=== PATIENT | male | born 1965 | race Caucasian/White ===

== ENCOUNTER 2024-03-16 20:30 | Outpatient (OUT) | payer OTHER, SELFPAY | END 2024-03-16 20:31 | disposition home or self-care (01) | LOC: SLEEP 20:43 | PROVIDERS: PCP Family Medicine; Visit Provider Family Medicine | DX: G47.33 Obstructive sleep apnea (adult) (pediatric) (principal); I10 Essential (primary) hypertension | CPT/HCPCS: 95810 ==

== ENCOUNTER 2024-03-24 19:32 | Outpatient (OUT) | payer OTHER, SELFPAY | END 2024-03-24 19:33 | disposition home or self-care (01) | LOC: SLEEP 19:44 | PROVIDERS: PCP Family Medicine; Visit Provider Psychiatry & Neurology Neurology | DX: G47.33 Obstructive sleep apnea (adult) (pediatric) (principal) | CPT/HCPCS: 95811 ==